=== PATIENT | male | born 1950 | race Caucasian/White ===

== ENCOUNTER 2018-09-18 09:32 | Day surgery (SDC) | payer MEDICARE, OTHER ==
[~2018-09-18] VITALS: Ht 182.9 cm; Wt 118.0 kg
[~2018-09-18 09:32] MED LIST: ANDRODERM1 EAC1 TOP; ASPI81CH PO; ATOR20; CEPH500 PO; ERGO400 PO; HYDCHL12.5 PO; IBUPROFEN200 MG PO; LEVSOD150 PO; LISHYD1012; LOSARTAN-HCTZ1 EAC1 PO; NAPR500 PO; Norvasc10 MG PO; OMEP20ER PO; PERI4 PO; SIMV10 PO; Synthroid175 MCG PO; TESTOSTERONE; TRAM50 PO; Vitamin D2000 UNIT PO
--- NOTE | 2018-09-18 12:23 | NUR ---
09/18/18 1223 Lisa Sullivan OXYGEN 10L VIA POM MASK
== END 2018-09-18 12:02 | disposition home or self-care (01) ==
LOC: ORSCSDS 09:32
PROVIDERS: Student in an Organized Health Care Education/Training Program
PROC: 0DB58ZX Excision of Esophagus, Via Natural or Artificial Opening Endoscopic, Diagnostic (ICD-10-PCS; principal; 2018-09-18 10:45)
DX: K22.70 Barrett's esophagus without dysplasia (principal); K21.9 Gastro-esophageal reflux disease without esophagitis; K44.9 Diaphragmatic hernia without obstruction or gangrene; G47.33 Obstructive sleep apnea (adult) (pediatric); E66.9 Obesity, unspecified; Z87.891 Personal history of nicotine dependence; Z68.35 Body mass index [BMI] 35.0-35.9, adult; Z79.82 Long term (current) use of aspirin; Z79.899 Other long term (current) drug therapy
CPT/HCPCS: 88305; J2704; J7120

== ENCOUNTER 2019-11-05 10:47 | Day surgery (SDC) | payer MEDICARE, OTHER ==
[~2019-11-05] VITALS: Ht 182.9 cm; Wt 118.1 kg
--- NOTE | 2019-11-05 11:25 | NUR ---
11/05/19 1125 WALESKA MCCRAY ONE ATTEMPT BY MACIE IN RW MISSED ONE SUCCESFUL BY MACIE IN UPPER PART OF RW PT TOW
--- NOTE | 2019-11-05 13:01 | NUR ---
11/05/19 1301 Theresa Oliver LATE ENTRY PATIENT REFUSED MULTIPLE OFFERS OF PO FLUIDS
== END 2019-11-05 12:56 | disposition home or self-care (01) ==
LOC: ORSCSDS 10:47
PROVIDERS: Student in an Organized Health Care Education/Training Program
PROC: 0DB58ZX Excision of Esophagus, Via Natural or Artificial Opening Endoscopic, Diagnostic (ICD-10-PCS; principal; 2019-11-05 12:00)
PROC: 0DB68ZX Excision of Stomach, Via Natural or Artificial Opening Endoscopic, Diagnostic (ICD-10-PCS; principal; 2019-11-05 12:00)
DX: K22.70 Barrett's esophagus without dysplasia (principal); K21.9 Gastro-esophageal reflux disease without esophagitis; K44.9 Diaphragmatic hernia without obstruction or gangrene; I10 Essential (primary) hypertension; G47.33 Obstructive sleep apnea (adult) (pediatric); E03.9 Hypothyroidism, unspecified; E78.5 Hyperlipidemia, unspecified; E66.9 Obesity, unspecified; Z68.35 Body mass index [BMI] 35.0-35.9, adult; Z79.899 Other long term (current) drug therapy
CPT/HCPCS: 88305; 88342; J2704; J7120

== ENCOUNTER 2020-04-25 10:19 | Emergency (ER) | payer MEDICARE, OTHER ==
[~2020-04-25] VITALS: Ht 182.9 cm; Wt 122.5 kg
[2020-04-25 11:02] LABS: BASOPHILS ABSOLUTE AUTO 0.08 K/mm3 (0.00-0.23); BASOPHILS PERCENT AUTO 1 % (0-2); EOSINOPHILS ABSOLUTE AUTO 0.06 K/mm3 (0.00-0.68); EOSINOPHILS PERCENT AUTO 1 % (0-6); Hematocrit 48.6 % (37.0-53.0); Hemoglobin 16.7 g/dL (13.5-17.5); IMMATURE GRAN ABSOLUTE AUTO 0.04 K/mm3 (0.00-0.10); IMMATURE GRAN PERCENT AUTO 1 % (0-1); LYMPHOCYTES ABSOLUTE AUTO 1.81 K/mm3 (0.84-5.20); LYMPHOCYTES PERCENT AUTO 26 % (21-46); MONOCYTES ABSOLUTE AUTO 0.58 K/mm3 (0.16-1.47); MONOCYTES PERCENT AUTO 8 % (4-13); Mean Corpuscular HGB 31.7 pg (26.0-34.0); Mean Corpuscular HGB Conc 34.4 g/dL (31.5-36.5); Mean Corpuscular Volume 92 fL (80-100); Mean Platelet Volume 10.1 fL (9.1-12.4); NEUTROPHILS ABSOLUTE AUTO 4.48 K/mm3 (1.96-9.15); NEUTROPHILS PERCENT AUTO 64 % (41-73); Platelet Count 168 K/mm3 (150-400); RDW Coefficient Variation 12.8 % (11.7-14.2); RDW Standard Deviation 43.2 fL (35.1-46.3); Red Blood Cell Count 5.27 M/mm3 (4.30-5.90); White Blood Cell Count 7.05 K/mm3 (4.00-11.30)
[2020-04-25 11:20] LABS: Alanine Aminotransfer (ALT/SGP 71 U/L (12-78); Albumin, Blood 3.9 g/dL (3.4-5.0); Albumin/Globulin Ratio 1.3 (0.8-1.8); Alk Phos 63 U/L (50-136); Anion Gap 8 mmol/L (6-16); Aspartate Aminotrans (AST/SGOT 30 U/L (12-37); Bilirubin, Total 0.8 mg/dL (0.1-1.0); Blood Urea Nitrogen 15 mg/dL (8-24); Bun/Creatinine Ratio 15.6 (12.0-20.0); CO2, Blood 26 mmol/L (21-32); Calcium, Blood 8.7 mg/dL (8.5-10.1); Chloride, Blood 102 mmol/L (98-108); Creatinine, Blood 0.96 mg/dL (0.60-1.20); Globulin, Blood 3.1 g/dL (2.2-4.0); Glomerular Filtration Rate >60 (60-); Glucose, Blood 136 mg/dL (70-99); Potassium, Blood 4.1 mmol/L (3.5-5.5); Sodium, Blood 136 mmol/L (136-145); Troponin I <0.015 ng/mL (0.000-0.040)
[2020-09-08] MEDS ORDERED: AMLO10 PO (08:24)
[2020-09-08] MEDS ORDERED: SYMBICORT 80-10.2 GM INH (08:25)
[2020-09-08] MEDS ORDERED: FLUTICASONE-SA1 EAC8 INH (08:26)
[2020-09-08] MEDS ORDERED: DEPO-TESTO200 MG/1 M IM (08:27)
[2020-09-08] MEDS ORDERED: TRAZ50 PO (08:27)
[2020-09-08] MEDS ORDERED: GABA300 PO (08:27)
== END 2020-04-25 16:36 | disposition home or self-care (01) ==
LOC: ER 10:19
PROVIDERS: Emergency Medicine
DX: R55 Syncope and collapse (principal); Z79.82 Long term (current) use of aspirin; Z79.899 Other long term (current) drug therapy; Z87.891 Personal history of nicotine dependence
CPT/HCPCS: 36415; 70450; 80053; 84484; 85025; 93005; 93010; 99284-25

== ENCOUNTER 2020-09-14 07:56 | Day surgery (SDC) | payer MEDICARE, OTHER ==
[~2020-09-14] VITALS: Ht 182.9 cm; Wt 121.7 kg
[~2020-09-14 07:56] MED LIST changes: +AMLO10 PO; +DEPO-TESTO200 MG/1 M IM; +FLUTICASONE-SA1 EAC8 INH; +GABA300 PO; +SYMBICORT 80-10.2 GM INH; +TRAZ50 PO
--- NOTE | 2020-09-14 08:30 | NUR ---
09/14/20 0830 Rosy Rodriguez CHARTING DONE BY ROLANDO FLOR RN
== END 2020-09-14 13:21 | disposition home or self-care (01) ==
LOC: ORSCSDS 07:56
PROVIDERS: Otolaryngology
PROC: 09DU4ZZ Extraction of Right Ethmoid Sinus, Percutaneous Endoscopic Approach (ICD-10-PCS; principal; 2020-09-14 09:00)
PROC: 8E09XBZ Computer Assisted Procedure of Head and Neck Region (ICD-10-PCS; principal; 2020-09-14 09:00)
PROC: 09DV4ZZ Extraction of Left Ethmoid Sinus, Percutaneous Endoscopic Approach (ICD-10-PCS; principal; 2020-09-14 09:00)
DX: J32.8 Other chronic sinusitis (principal); G47.33 Obstructive sleep apnea (adult) (pediatric); K21.9 Gastro-esophageal reflux disease without esophagitis; Z79.82 Long term (current) use of aspirin; Z79.899 Other long term (current) drug therapy; E78.5 Hyperlipidemia, unspecified; E03.9 Hypothyroidism, unspecified; Z87.891 Personal history of nicotine dependence
CPT/HCPCS: 88305; 88311; A9270; C2625; J0171; J1100; J2250; J2370; J2405; J2704; J2710; J3010; J7120

== ENCOUNTER 2021-02-07 06:49 | Day surgery (SDC) | payer MEDICARE, OTHER ==
[~2021-02-07] VITALS: Ht 182.9 cm; Wt 125.6 kg
[~2021-02-07 06:49] MED LIST changes: +ATOR20 PO; +[UNRECOGNIZED DRUG - OTHER] TOP
--- NOTE | 2021-02-07 07:32 | NUR ---
Ambulatory in Day Surgery Patient states colon prep results clear. History, Chart, Medications and Allergies reviewed before start of procedure. Pre-Op teaching done. Pt verbalizes understanding. Patient States Post-Procedure ride home has been arranged.
--- NOTE | 2021-02-07 08:47 | NUR ---
02/07/21 0847 Alec Cummings History, Chart, Medications and Allergies reviewed before start of procedure.MONITOR INTACT WITH CONTINUOUS PULSE OXIMETRY AND INTERMITTENT BP.3-LEAD EKG REVIEWED WITH PHYSICIAN PRIOR TO START OF PROCEDURE.O2 VIA NRB MASK INTACT THROUGHOUT SEDATION/PROCEDURE. See Anesthesia record.
--- NOTE | 2021-02-07 09:55 | NUR ---
Patient up to Ambulate independently. Gait steady. Discharge instructions reviewed with patient. Patient verbalizes understanding. Copy given to patient to take home. Patient States Post-Procedure ride home has been arranged. Discharged via wheelchair to private car for ride home. ALL BELONINGS RETURNED TO [facility].
== END 2021-02-07 23:37 | disposition home or self-care (01) ==
LOC: ORSCMMR 06:49 → ORD 08:30 → ORSCMMR 08:30
PROVIDERS: Surgery
PROC: 0DBL8ZX Excision of Transverse Colon, Via Natural or Artificial Opening Endoscopic, Diagnostic (ICD-10-PCS; principal; 2021-02-07 08:30)
PROC: 0DBK8ZX Excision of Ascending Colon, Via Natural or Artificial Opening Endoscopic, Diagnostic (ICD-10-PCS; principal; 2021-02-07 08:30)
DX: Z12.11 Encounter for screening for malignant neoplasm of colon (principal); D12.2 Benign neoplasm of ascending colon; D12.3 Benign neoplasm of transverse colon; K57.30 Diverticulosis of large intestine without perforation or abscess without bleeding; Z86.010 Personal history of colon polyps; I10 Essential (primary) hypertension; E03.9 Hypothyroidism, unspecified; E78.5 Hyperlipidemia, unspecified; G47.33 Obstructive sleep apnea (adult) (pediatric); K21.9 Gastro-esophageal reflux disease without esophagitis; E66.01 Morbid (severe) obesity due to excess calories; Z68.37 Body mass index [BMI] 37.0-37.9, adult; Z79.82 Long term (current) use of aspirin; Z79.899 Other long term (current) drug therapy; Z87.891 Personal history of nicotine dependence
CPT/HCPCS: 88305; J2704; J7120

== ENCOUNTER 2021-10-14 05:26 | Emergency (ER) | payer MEDICARE, OTHER ==
[~2021-10-14] VITALS: Ht 182.9 cm; Wt 117.9 kg
[2021-10-14 05:59] LABS: BASOPHILS ABSOLUTE AUTO 0.09 K/mm3 (0.00-0.23); BASOPHILS PERCENT AUTO 1 % (0-2); EOSINOPHILS ABSOLUTE AUTO 0.05 K/mm3 (0.00-0.68); EOSINOPHILS PERCENT AUTO 0 % (0-6); Hematocrit 48.7 % (37.0-53.0); Hemoglobin 16.3 g/dL (13.5-17.5); IMMATURE GRAN ABSOLUTE AUTO 0.08 K/mm3 (0.00-0.10); IMMATURE GRAN PERCENT AUTO 1 % (0-1); LYMPHOCYTES ABSOLUTE AUTO 2.41 K/mm3 (0.84-5.20); LYMPHOCYTES PERCENT AUTO 22 % (21-46); MONOCYTES ABSOLUTE AUTO 0.99 K/mm3 (0.16-1.47); MONOCYTES PERCENT AUTO 9 % (4-13); Mean Corpuscular HGB 30.4 pg (26.0-34.0); Mean Corpuscular HGB Conc 33.5 g/dL (31.5-36.5); Mean Corpuscular Volume 91 fL (80-100); Mean Platelet Volume 10.2 fL (9.1-12.4); NEUTROPHILS ABSOLUTE AUTO 7.52 K/mm3 (1.96-9.15); NEUTROPHILS PERCENT AUTO 68 % (41-73); Platelet Count 195 K/mm3 (150-400); RDW Coefficient Variation 13.7 % (11.7-14.2); RDW Standard Deviation 45.8 fL (35.1-46.3); Red Blood Cell Count 5.37 M/mm3 (4.30-5.90); White Blood Cell Count 11.14 K/mm3 (4.00-11.30)
[2021-10-14 06:05] LABS: Albumin/Globulin Ratio 1.3 (0.8-1.8); Bilirubin, Total 0.6 mg/dL (0.1-1.0); Bun/Creatinine Ratio 21.4 (12.0-20.0); Creatinine, Blood 0.94 mg/dL (0.60-1.20); Globulin, Blood 3.1 g/dL (2.2-4.0); Potassium, Blood 3.7 mmol/L (3.5-5.5); Total Protein, Blood 7.1 g/dL (6.4-8.2)
== END 2021-10-14 09:23 | disposition home or self-care (01) ==
LOC: ER 05:26
PROVIDERS: Student in an Organized Health Care Education/Training Program
DX: R07.9 Chest pain, unspecified (principal); R10.10 Upper abdominal pain, unspecified; R00.2 Palpitations; R06.02 Shortness of breath; I10 Essential (primary) hypertension; Z87.891 Personal history of nicotine dependence
CPT/HCPCS: 36415; 71046; 76705; 80053; 83690; 84484; 85025; 85651; 93005; 93010; A9270; J1170; J2405

== ENCOUNTER → 2022-01-11 | Outpatient (CLI) | payer MEDICARE, OTHER | LOC: LAB SHORT 14:14 → PLD 14:14 | DX: R21 Rash and other nonspecific skin eruption (principal) | CPT/HCPCS: 88312 ==

== ENCOUNTER 2022-07-16 13:16 | Day surgery (SDC) | payer MEDICARE, OTHER ==
[~2022-07-16] VITALS: Ht 182.9 cm; Wt 120.2 kg
[2022-07-16 15:10] VITALS: BP 118/76
== END 2022-07-16 15:01 | disposition home or self-care (01) ==
LOC: ORSCSDS 13:16
PROVIDERS: Student in an Organized Health Care Education/Training Program
PROC: 0DB68ZX Excision of Stomach, Via Natural or Artificial Opening Endoscopic, Diagnostic (ICD-10-PCS; principal; 2022-07-16 14:30)
PROC: 0DB58ZX Excision of Esophagus, Via Natural or Artificial Opening Endoscopic, Diagnostic (ICD-10-PCS; principal; 2022-07-16 14:30)
DX: K22.70 Barrett's esophagus without dysplasia (principal); K21.9 Gastro-esophageal reflux disease without esophagitis; K44.9 Diaphragmatic hernia without obstruction or gangrene; I10 Essential (primary) hypertension; E78.5 Hyperlipidemia, unspecified; G47.30 Sleep apnea, unspecified; K76.0 Fatty (change of) liver, not elsewhere classified; E03.9 Hypothyroidism, unspecified; G47.33 Obstructive sleep apnea (adult) (pediatric); Z86.010 Personal history of colon polyps; F32.A Depression, unspecified; Z79.82 Long term (current) use of aspirin; Z87.891 Personal history of nicotine dependence; Z68.36 Body mass index [BMI] 36.0-36.9, adult; Z79.899 Other long term (current) drug therapy; E66.01 Morbid (severe) obesity due to excess calories
CPT/HCPCS: 88305; 88342; J0330; J0461; J2001; J2405; J2704; J7120; Q9968

== ENCOUNTER → 2022-10-30 | Outpatient (CLI) | payer MEDICARE, OTHER | END | disposition home or self-care (01) | LOC: LAB SHORT 11:40 → LAB 11:40 | DX: M25.571 Pain in right ankle and joints of right foot (principal) | CPT/HCPCS: 84550 ==

== ENCOUNTER 2024-11-21 07:34 | Inpatient (IN) | payer MEDICARE, OTHER ==
[~2024-11-21] VITALS: Ht 182.9 cm; Wt 117.5 kg
[2024-11-21] MEDS ORDERED: TAMSULOSIN HCL0.4 M1 PO (08:45)
[2024-11-21 10:45] LABS: BASOPHILS ABSOLUTE AUTO 0.05 K/mm3 (0.00-0.23); BASOPHILS PERCENT AUTO 1 % (0-2); EOSINOPHILS ABSOLUTE AUTO 0.04 K/mm3 (0.00-0.68); EOSINOPHILS PERCENT AUTO 1 % (0-6); Hematocrit 36.5 % (37.0-53.0); Hemoglobin 12.1 g/dL (13.5-17.5); IMMATURE GRAN ABSOLUTE AUTO 0.02 K/mm3 (0.00-0.10); IMMATURE GRAN PERCENT AUTO 0 % (0-1); LYMPHOCYTES ABSOLUTE AUTO 1.61 K/mm3 (0.84-5.20); LYMPHOCYTES PERCENT AUTO 21 % (21-46); MONOCYTES ABSOLUTE AUTO 0.54 K/mm3 (0.16-1.47); MONOCYTES PERCENT AUTO 7 % (4-13); Mean Corpuscular HGB Conc 33.2 g/dL (31.5-36.5); Mean Corpuscular Volume 91 fL (80-100); NEUTROPHILS ABSOLUTE AUTO 5.38 K/mm3 (1.96-9.15); NEUTROPHILS PERCENT AUTO 70 % (41-73); NRBC ABSOLUTE 0.00 K/mm3 (0.00-0.02); NRBC Auto 0.0 /100 WBC (0.0-0.2); Platelet Count 240 K/mm3 (150-400); RDW Coefficient Variation 12.9 % (11.7-14.2); RDW Standard Deviation 43.1 fL (35.1-46.3)
[2024-11-21 11:00] LABS: Prothrombin Time Results 11.7 Sec (9.7-11.5)
[2024-11-21 11:02] LABS: Alanine Aminotransfer (ALT/SGP 24.0 U/L (12-78); Albumin, Blood 3.9 g/dL (3.4-5.0); Albumin/Globulin Ratio 1.3 (0.8-1.8); Anion Gap 8.0 mmol/L (3-11); Aspartate Aminotrans (AST/SGOT 29.0 U/L (12-37); Bilirubin, Total 0.6 mg/dL (0.1-1.0); Blood Urea Nitrogen 33.0 mg/dL (8-24); CO2, Blood 28.0 mmol/L (21-32); Calcium, Blood 8.7 mg/dL (8.5-10.1); Chloride, Blood 106.0 mmol/L (98-108); Creatinine, Blood 1.2 mg/dL (0.60-1.20); Globulin, Blood 2.9 g/dL (2.2-4.0); Glucose, Blood 115.0 mg/dL (70-99); Magnesium, Blood 2.0 mg/dL (1.6-2.4); Potassium, Blood 3.5 mmol/L (3.5-5.5); Sodium, Blood 138.0 mmol/L (136-145); Total Protein, Blood 6.8 g/dL (6.4-8.2)
[2024-11-21] MEDS ORDERED: Peg/Electrolytes 4,000 ML BTL PO ONE ×2 (14:50→20:20)
[2024-11-21 15:08] LABS: PSA, %Free 29.5 %; PSA, Free 3.130 ng/mL; Prostate Specific Antigen 10.600 ng/mL (0.000-4.000)
[2024-11-21 16:09] LABS: Source, Urine Clean Catch
[2024-11-21 16:16] LABS: Bilirubin, Urine Neg (Neg); Glucose Qualitative, Urine Neg (Neg); Ketones, Urine Neg (Neg); Leukocyte Esterase, Urine Neg (Neg); Protein, Urine 2+ (Neg); Specific Gravity, Urine 1.015 (1.003-1.022); Urobilinogen, Urine NORM (Normal)
[2024-11-21 16:48] LABS: Color, Urine Pale Yellow (P-Yellow)
[2024-11-21 16:50] LABS: White Blood Cells, Urine 0-2 /hpf (0-5)
[2024-11-21 18:22] LABS: Hematocrit 35.6 % (37.0-53.0); Hemoglobin 12.0 g/dL (13.5-17.5)
[2024-11-21 18:43] LABS: Prothrombin Time Results 11.8 Sec (9.7-11.5)
[2024-11-21 19:31] VITALS: BP 145/79
--- NOTE | 2024-11-21 20:18 | NUR ---
THIS HEAD OF RESEARCH & INSIGHTS CALLED TO PHARMACY D/T GOLYTELY ORDER WAS SUPPOSED TO START 1420. ORDER IS "START ONCE PT HAS TRANSFERRED TO THE HOSPITAL ROOM". ORDER HAS TIMED OUT PER PHARMACIST CONVERSTATION. PT ARRIVED TO THE MEDICAL FLOOR RM 310 @1925. NEW ONE TIME ORDER PUT IN BY THIS HEAD OF RESEARCH & INSIGHTS FOR GOLYTELY 4,000 PO OT ONE. THIS ORDER WAS ADDED PER PHARMACY RECOMMENDATION. STARTING THE GOLYTELY SOON ORDER IS ACTIVE FROM THE PHARMACY. CHARGE NURSE SUZI NOTIFIED.
--- NOTE | 2024-11-21 20:21 | NUR ---
PT ARRIVED TO THE MEDICAL FLOOR IN A GURNEY @1925. REPORT WAS RECEIVED FROM ED NURSE IFEANYI. PT TRANSFERRED WITH SBA TO THE HOSPITAL BED. NON-SLIP SOCKS APPLIED. PT REPORTS SOME DIFFICULTY AMBULATING WITH THE ACUTE WILSON CATHETER. PT BROUGHT ALL HIS BELONINGS WITH HIM. EDUCATED ON FALL PRECAUTIONS AND EDUCATED CORRECTION OFFICER SUPERVISOR LIGHT. STARTING GOLYTELY THIS HS DUE TO SCHEDULED COLONOSCOPY AND EGD TOMORROW APPROXIMATELY @1000. PT IS A/O X4, PLEASANT AND ABLE TO MAKE HIS NEEDS KNOWN. BED AT THE LOWEST POSITION, CALL LIGHT W/I REACH.
[2024-11-21] MEDS ORDERED: Lactobacil 2-S.Thermo-Bifido 1 1 Cap PO SCH (21:00)
[2024-11-22] VITALS (23 sets, daily range): BP systolic 95–166; BP diastolic 49–87
[2024-11-22] MEDS ORDERED: FentaNYL Citrate 50 MCG/ML 2 ML Injection IV PRN (01:10)
--- NOTE | 2024-11-22 01:13 | NUR ---
NEW TP-ORDERS RECEIVED FROM THE ON-CALL HOSPITALIST DR. SCHUSTER: MINERAL OIL ENEMA X1, FENTANYL 25-50MCG Q4 PRN IV. ENTERED TO [employer], SEE EMAR.
--- NOTE | 2024-11-22 03:13 | NUR ---
SHIFT SUMMARY GOLYTELY STARTED @2044. FEW HRS LATER PT C/O PAIN WHEN BREARING DOWN AND ATTEMPTING TO HAVE A BM. PT UNABLE TO HAVE A BM. PT IN DISCOMFORT. NEW ORDER FOR FENTANYL AND MINERAL OIL ENEMA RECEIVED FROM THE ON-CALL HOSPITALIST. ENEMA ADMINISTERED ORDERED. PT ABLE TO HOLD FOR>45MINS BEFORE USING BSC. SMALL HARD STOOL NOTED. SMALL AMOUNT OF BLEEDING FROM RECTUM WITH STOOL NOTED. PT RATES PAIN 6/10 WHEN BEARING DOWN AND REPORTS FENTANYL EFFECTIVE. FROM [id number], PT ATTEMPTED BM ON BSC TWICE. PT REPORTS NO URGE TO HAVE A BM. ACUTE WILSON DRAINING TO GRAVITY, REDDISH/TEA COLOR URINE. SBA D/T WEAKNESS AND PT REPORTS BEING VERY TIRED STAYING UP DRINKING GOLYTELY. PT IS A/O X4, PLEASANT AND COOPERATIVE WITH CARE. PT IS ABLE TO MAKE HIS NEEDS KNOWN. CALL LIGHT W/I REACH, BED AT THE LOWEST POSITION.
--- NOTE | 2024-11-22 05:05 | NUR ---
@0500 PT FINISHING GOLSabrTechLY. NO LIQUID BM OF YET, NO LOOSE STOOLS OR HARD STOOLS. THIRD ATTEMPT TO HAVE A BM, PT SITTING ON THE BSC. EARLIER PT HAD A SML HARD STOOL.
[2024-11-22] MEDS ORDERED: Levothyroxine Sodium 0.15 MG Tab PO SCH (06:00)
[2024-11-22 07:07] LABS: BASOPHILS ABSOLUTE AUTO 0.06 K/mm3 (0.00-0.23); BASOPHILS PERCENT AUTO 1 % (0-2); EOSINOPHILS ABSOLUTE AUTO 0.05 K/mm3 (0.00-0.68); EOSINOPHILS PERCENT AUTO 1 % (0-6); Hematocrit 35.3 % (37.0-53.0); Hemoglobin 11.8 g/dL (13.5-17.5); IMMATURE GRAN ABSOLUTE AUTO 0.04 K/mm3 (0.00-0.10); IMMATURE GRAN PERCENT AUTO 0 % (0-1); LYMPHOCYTES ABSOLUTE AUTO 1.35 K/mm3 (0.84-5.20); LYMPHOCYTES PERCENT AUTO 14 % (21-46); MONOCYTES ABSOLUTE AUTO 0.83 K/mm3 (0.16-1.47); MONOCYTES PERCENT AUTO 9 % (4-13); Mean Corpuscular HGB Conc 33.4 g/dL (31.5-36.5); Mean Corpuscular Volume 91 fL (80-100); NEUTROPHILS ABSOLUTE AUTO 7.29 K/mm3 (1.96-9.15); NEUTROPHILS PERCENT AUTO 76 % (41-73); NRBC ABSOLUTE 0.00 K/mm3 (0.00-0.02); NRBC Auto 0.0 /100 WBC (0.0-0.2); Platelet Count 241 K/mm3 (150-400); RDW Coefficient Variation 13.1 % (11.7-14.2); RDW Standard Deviation 43.2 fL (35.1-46.3)
[2024-11-22 07:29] LABS: Alanine Aminotransfer (ALT/SGP 24.0 U/L (12-78); Albumin, Blood 3.7 g/dL (3.4-5.0); Albumin/Globulin Ratio 1.3 (0.8-1.8); Anion Gap 9.0 mmol/L (3-11); Aspartate Aminotrans (AST/SGOT 25.0 U/L (12-37); Bilirubin, Total 0.6 mg/dL (0.1-1.0); Blood Urea Nitrogen 30.0 mg/dL (8-24); CO2, Blood 27.0 mmol/L (21-32); Calcium, Blood 8.7 mg/dL (8.5-10.1); Chloride, Blood 106.0 mmol/L (98-108); Creatinine, Blood 1.14 mg/dL (0.60-1.20); Globulin, Blood 2.9 g/dL (2.2-4.0); Glucose, Blood 136.0 mg/dL (70-99); Magnesium, Blood 2.0 mg/dL (1.6-2.4); Potassium, Blood 3.3 mmol/L (3.5-5.5); Sodium, Blood 139.0 mmol/L (136-145); Total Protein, Blood 6.6 g/dL (6.4-8.2)
--- NOTE | 2024-11-22 08:44 | NUR ---
pt up to bsc, very weak, a/ox4, pleasant and cooperative with care, follows commands well, denies pain at this time, lungs are clear t/o, a bit dim in bases, resp even and unlabored, no cough noted or reported, on r/a, hrr, no edema noted to b/l le, ppp+1, cap reifill<3 sec, vs stable, afebrile, piv to rh and lac, site is clear and patent, btx4 hyperactive, santiago in place draining red urine, skin cw//d, maew, weak, karolyn, call light in reach.
[2024-11-22] MEDS ORDERED: Benzocaine Oral Spray 0.5ML UD ONE (09:49)
--- NOTE | 2024-11-22 09:50 | NUR ---
pt left for day surgery via wheelchair.
--- NOTE | 2024-11-22 10:02 | NUR ---
History, Chart, Medications and Allergies reviewed before start of procedure. Pre-Op teaching done. Pt verbalizes understanding. Patient confirms NPO status and agrees with scheduled surgery. Patient states colon prep results BROWN.
--- NOTE | 2024-11-22 10:07 | NUR ---
11/22/24 Isabella6 Peace Rene CONFIRMED AND REVIEWED H&P, MEDCICATIONS, ALLERGIES, MEDICAL HISTORY, RESPIRATORY HISTORY, VITAL SIGNS, 3-LEAD EKG, CONSENTS, AND PHYSICIAN ORDERS. PATIENT CONFIRMS NPO STATUS AND AGREES WITH SCHEDULED PROCEDURE. MONITOR INTACT WITH CONTINUOUS PULSE OXIMETRY, CAPNOGRAPHY, 3-LEAD EKG, INTERMITTENT BP. SUPPLEMENTAL O2 TO BE TITRATED THROUGHOUT PROCEDURE TO MAINTAIN O2 SATURATION ABOVE 90%. PATIENT DETERMINED TO BE ASA APPROPRIATE FOR PROPOFOL SEDATION PRIOR TO START OF PROCEDURE BY . MALLAMPATI CLASS 2 AIRWAY: COMPLETE VISUALIZATION OF THE UVULA.
[2024-11-22] MEDS ORDERED: Midazolam HCl 1MG / ML 2ML Vial ONE (10:20)
--- NOTE | 2024-11-22 11:06 | NUR ---
Pt returned to room awake, was able to scoot himself over to his bed from [facility], denies pain, states he's doing ok. call light in reach.
--- NOTE | 2024-11-22 17:19 | NUR ---
pt states he feels pressure in his bladder, like it's not drainging, bladder scan was done with results of 53mls. he is also leaking a scant amount around santiago, urine continues to be red, visitor in room, no furhter needs, call light in reach.
--- NOTE | 2024-11-22 19:13 | NUR ---
pt states he still feels the pressure in his bladder, but when he sat up to eat it was really bad, called Dr. Hess with this concern and that we did a bladder scan with result of 58mls, she was ok to irrigate bladder, this was gently done, was able to infuse saline, but not able to pull it back, it did drain out in tube, pt tolerated well, no clots noted, no further changes this shift. call light in reach.
[2024-11-22] MEDS ORDERED: HYDROcodone 10-APAP 325 TAB PO PRN (20:20)
[2024-11-22] MEDS ORDERED: Polyethylene Glycol 3350 17 gm PO SCH (21:00)
[2024-11-23 03:24] VITALS: BP 127/75
--- NOTE | 2024-11-23 03:32 | NUR ---
SHIFT SUMAMRY PT C/O PRESSURE IN THE BLADDER. GENTLY IRRIGATED WILSON LINE, NO CLOTS NOTED, GOOD RETURN OF THE SALINE YELLOW URINE. PT REPORTS FEELING BETTER AFTER. URINE IS PINK/RED IN COLOR, OUTPUT>200MLS/. PT WAS BLADDER SCANNED X2 DURING THIS SHIFT, WHICH SHOWED 0MLS URINE. PRN TYLENOL ADMINISTERED AT HS FOR PRESSURE/PAIN IN THE BLADDER. PT RESTING T/O THIS SHIFT. BED AT THE LOWEST POSITION, CALL LIGHT W/I REACH.
[2024-11-23 07:19] VITALS: BP 135/81
[2024-11-23 10:57] LABS: BASOPHILS ABSOLUTE AUTO 0.09 K/mm3 (0.00-0.23); BASOPHILS PERCENT AUTO 1 % (0-2); EOSINOPHILS ABSOLUTE AUTO 0.06 K/mm3 (0.00-0.68); EOSINOPHILS PERCENT AUTO 1 % (0-6); Hematocrit 32.3 % (37.0-53.0); Hemoglobin 10.9 g/dL (13.5-17.5); IMMATURE GRAN ABSOLUTE AUTO 0.04 K/mm3 (0.00-0.10); IMMATURE GRAN PERCENT AUTO 1 % (0-1); LYMPHOCYTES ABSOLUTE AUTO 1.81 K/mm3 (0.84-5.20); LYMPHOCYTES PERCENT AUTO 21 % (21-46); MONOCYTES ABSOLUTE AUTO 0.54 K/mm3 (0.16-1.47); MONOCYTES PERCENT AUTO 6 % (4-13); Mean Corpuscular HGB Conc 33.7 g/dL (31.5-36.5); Mean Corpuscular Volume 91 fL (80-100); NEUTROPHILS ABSOLUTE AUTO 6.03 K/mm3 (1.96-9.15); NEUTROPHILS PERCENT AUTO 70 % (41-73); NRBC ABSOLUTE 0.00 K/mm3 (0.00-0.02); NRBC Auto 0.0 /100 WBC (0.0-0.2); Platelet Count 236 K/mm3 (150-400); RDW Coefficient Variation 13.0 % (11.7-14.2); RDW Standard Deviation 42.9 fL (35.1-46.3)
[2024-11-23 11:15] LABS: Alanine Aminotransfer (ALT/SGP 20.0 U/L (12-78); Albumin, Blood 3.3 g/dL (3.4-5.0); Albumin/Globulin Ratio 1.2 (0.8-1.8); Anion Gap 10.0 mmol/L (3-11); Aspartate Aminotrans (AST/SGOT 21.0 U/L (12-37); Bilirubin, Total 0.6 mg/dL (0.1-1.0); Blood Urea Nitrogen 25.0 mg/dL (8-24); CO2, Blood 26.0 mmol/L (21-32); Calcium, Blood 8.2 mg/dL (8.5-10.1); Chloride, Blood 105.0 mmol/L (98-108); Creatinine, Blood 1.02 mg/dL (0.60-1.20); Globulin, Blood 2.8 g/dL (2.2-4.0); Glucose, Blood 155.0 mg/dL (70-99); Magnesium, Blood 1.9 mg/dL (1.6-2.4); Potassium, Blood 3.2 mmol/L (3.5-5.5); Sodium, Blood 138.0 mmol/L (136-145); Total Protein, Blood 6.1 g/dL (6.4-8.2)
--- NOTE | 2024-11-23 14:08 | NUR ---
NOTE PT REPORTS PRESSURE AT BADDER/ABD. NIGHT RN REPORTED IRRIGATING WILSON LAST NIGHT. DR. TAY GAVE OK TO IRRIGATE WILSON IF NOT DRAINING AND PT REPORTS PRESSURE AND NEED TO PEE. PT POTASSIUM IS 3.2. DR. TAY REPORTED "WILL ORDER POTASSIUM REPLACEMENT, AND WILL CHANGE ENULOSE PRN TO SCHEDULED, AND UROLOGY SHOULD BE CONSULTED TODAY. THIS RN CALLED IN CONSULT THIS AM. DR. TAY GAVE VERBAL TO REORDER MRI DUE TO CROP CONSULTANT REPORTED "NO ORDER NOTED THIS AM." MRI FORM FILLED OUT AND FAXED PER BREAK RN. PLAN IS MRI WILL OCCUR TOMORROW AND UROLOGY WILL SEE PT TODAY.
[2024-11-23 16:47] VITALS: BP 143/82
--- NOTE | 2024-11-23 19:22 | NUR ---
SHIFT SUMMARY PT A&OX4. PT ADMITTED DUE TO RECTAL BLEED. PT REPORTS SOME PAIN AT RECTUM/PROSTATE. MEDICATED PER EMAR. PT IS SBA W FWW. PT HAS WILSON DUE TO ACUTE RETENTION. WILSON IRREGATED X3. PT REPORTS PRESSURE AT PROSTATE/BLADDER BUT IMPROVED WITH IRREGATION. PT EATS ADEQUATE. UROLOGY SAW PT. ENULOSE NOW SCHEDULED. PT HAD ONE BM DURING SHIFT, WITH GOAL OF [address] TAY. PT HAD POTASSIUM REPLENISHED PO TODAY. PT IN BED, BED IN LOWEST POSITION, CALL LIGHT IN REACH. PLAN FOR BIOPSY AND MRI TOMORROW. PT NPO AT MIDNIGHT.
[2024-11-23 20:26] VITALS: BP 137/84
--- NOTE | 2024-11-24 03:07 | NUR ---
SHIFT SUMMARY URINE IN ACUTE WILSON BAG IS RED/PINK. PRN TYLENOL ADMINISTERED AT HS PER PT REPORT. NO IRRIGATION NEEDED DURING THIS SHIFT. NO CLOTS NOTED. HS TRAZADONE EFFECTIVE, PT RESTING W/O ACUTE DISTRESS. LACTULOSE ADMINISTERED AT HS. NO BM DURING THIS SHIFT. PT REPORTS PASSING GAS. BOWEL TONES HYPOACITVE. NPO AFTER MIDNIGHT FOR SCHEDULED MRI AND BIOPSY TODAY. BED AT THE LOWEST POSITION, CALL LIGHT W/I REACH. PT IS A/O X4, ABLE TO MAKE HIS NEEDS KNOWN AND COOPERATIVE WITH CARE.
[2024-11-24 05:31] LABS: BASOPHILS ABSOLUTE AUTO 0.07 K/mm3 (0.00-0.23); BASOPHILS PERCENT AUTO 1 % (0-2); EOSINOPHILS ABSOLUTE AUTO 0.16 K/mm3 (0.00-0.68); EOSINOPHILS PERCENT AUTO 2 % (0-6); Hematocrit 32.6 % (37.0-53.0); Hemoglobin 10.7 g/dL (13.5-17.5); IMMATURE GRAN ABSOLUTE AUTO 0.04 K/mm3 (0.00-0.10); IMMATURE GRAN PERCENT AUTO 1 % (0-1); LYMPHOCYTES ABSOLUTE AUTO 2.35 K/mm3 (0.84-5.20); LYMPHOCYTES PERCENT AUTO 29 % (21-46); MONOCYTES ABSOLUTE AUTO 0.73 K/mm3 (0.16-1.47); MONOCYTES PERCENT AUTO 9 % (4-13); Mean Corpuscular HGB Conc 32.8 g/dL (31.5-36.5); Mean Corpuscular Volume 93 fL (80-100); NEUTROPHILS ABSOLUTE AUTO 4.74 K/mm3 (1.96-9.15); NEUTROPHILS PERCENT AUTO 59 % (41-73); NRBC ABSOLUTE 0.00 K/mm3 (0.00-0.02); NRBC Auto 0.0 /100 WBC (0.0-0.2); Platelet Count 217 K/mm3 (150-400); RDW Coefficient Variation 13.1 % (11.7-14.2); RDW Standard Deviation 44.4 fL (35.1-46.3)
[2024-11-24 05:57] LABS: Alanine Aminotransfer (ALT/SGP 19.0 U/L (12-78); Albumin, Blood 3.2 g/dL (3.4-5.0); Albumin/Globulin Ratio 1.2 (0.8-1.8); Anion Gap 7.0 mmol/L (3-11); Aspartate Aminotrans (AST/SGOT 19.0 U/L (12-37); Bilirubin, Total 0.5 mg/dL (0.1-1.0); Blood Urea Nitrogen 24.0 mg/dL (8-24); CO2, Blood 29.0 mmol/L (21-32); Calcium, Blood 7.9 mg/dL (8.5-10.1); Chloride, Blood 107.0 mmol/L (98-108); Creatinine, Blood 1.22 mg/dL (0.60-1.20); Globulin, Blood 2.7 g/dL (2.2-4.0); Glucose, Blood 106.0 mg/dL (70-99); Magnesium, Blood 2.0 mg/dL (1.6-2.4); Potassium, Blood 3.7 mmol/L (3.5-5.5); Sodium, Blood 139.0 mmol/L (136-145); Total Protein, Blood 5.9 g/dL (6.4-8.2)
[2024-11-24 07:16] VITALS: BP 129/72
[2024-11-24] MEDS ORDERED: Cholecalciferol 1000 Unit Tablet (=25MCG) PO SCH (09:00)
--- NOTE | 2024-11-24 12:27 | NUR ---
NOTE DAY SURGERY STATED PT NOT ON SURGICAL SCHEDULE, CALLED UROLOGIST LEFT VOICEMAIL. PT NPO, DR. POZO REPORTED HOLD AM MEDS. UROLOGY CAME BY TO SEE PT, STATES "SURGERY/BIOPSY CANCELED TODAY DUE TO AWAITING EQUIPMENT, PT CAN EAT." CALLED DR. POZO TO NOTIFY. DR. POZO REPORTED D/C POTASSIUM DUE TO PT POTASSIUM WITHIN RANGE. CAN GIVE AM MEDS. ORDERED NOW TRAY. PT IN BED, BED IN LOWEST POSITION, CALL LIGHT IN REACH.
--- NOTE | 2024-11-24 12:29 | NUR ---
"Spiritual Care Consult | Ordered by Fiona Hess DO Pt is awake in bed and welcomes my visit. Pt. is pleasant. Spouse is at bedside. facilitate a life review and consider matters of rogerio and belief. Listen with interest, empathy and a calming presence. Pt. displays evidence of trust and engagement. During the visit a measure of rapport is established. Prayed with the Pt. Pt. verbalized gratitude for the spiritual care visit."
[2024-11-24 12:57] VITALS: BP 134/66
[2024-11-24 16:58] VITALS: BP 128/72
--- NOTE | 2024-11-24 19:32 | NUR ---
SHIFT SUMMARY PT A&OX4. PT ADMITTED DUE TO RECTAL BLEED. PT REPORTS SOME PAIN AT RECTUM/PROSTATE. PT DENIED NEED FOR PAIN MEDS. PT IS SBA W FWW. PT HAS WILSON DUE TO ACUTE RETENTION. PT REPORTED IMPROVEMENT WITH PRESSURE AT PROSTATE/BLADDER. THIS RN DID NOT NEED TO IRRIGATE WILSON TODAY. PT EATS ADEQUATE. UROLOGY SAW PT. ENULOSE NOW SCHEDULED. PT DID NOT REPORT BM TODAY. WITH GOAL OF [address] TAY, YESTERDAY. DR. COUGHLIN CAME TO SEE PT TODAY. MRI COMPLETED. UROLOGY SAW PT TODAY. PT IN BED, BED IN LOWEST POSITION, CALL LIGHT IN REACH. PLAN FOR BIOPSY TOMORROW AT 5PM. PT NPO AT MIDNIGHT. VSS.
[2024-11-24 20:40] VITALS: BP 121/61
[2024-11-25] VITALS (11 sets, daily range): BP systolic 128–171; BP diastolic 68–92
--- NOTE | 2024-11-25 04:53 | NUR ---
SHIFT SUMMARY NOC PT A/O X 4. PLEASANT AND COOPERATIVE WITH CARE. VSS. PT PELVIC PAIN BEING MANAGED PER EMAR. WILSON IN PLACE WITH PINK TINTED URINE, IRRIGATED PRN. PT HAS BEEN NPO SINCE MIDNIGHT FOR ULTRASOUND GUIDED PROSTATE BIOPSY TODAY @ 1700. PT CURRENTLY RESTING WITH BED IN LOWEST POSITION, AND CALL LIGHT WITHIN REACH.
[2024-11-25 05:32] LABS: BASOPHILS ABSOLUTE AUTO 0.08 K/mm3 (0.00-0.23); BASOPHILS PERCENT AUTO 1 % (0-2); EOSINOPHILS ABSOLUTE AUTO 0.19 K/mm3 (0.00-0.68); EOSINOPHILS PERCENT AUTO 2 % (0-6); Hematocrit 31.5 % (37.0-53.0); Hemoglobin 10.4 g/dL (13.5-17.5); IMMATURE GRAN ABSOLUTE AUTO 0.06 K/mm3 (0.00-0.10); IMMATURE GRAN PERCENT AUTO 1 % (0-1); LYMPHOCYTES ABSOLUTE AUTO 2.11 K/mm3 (0.84-5.20); LYMPHOCYTES PERCENT AUTO 26 % (21-46); MONOCYTES ABSOLUTE AUTO 0.71 K/mm3 (0.16-1.47); MONOCYTES PERCENT AUTO 9 % (4-13); Mean Corpuscular HGB Conc 33.0 g/dL (31.5-36.5); Mean Corpuscular Volume 93 fL (80-100); NEUTROPHILS ABSOLUTE AUTO 5.00 K/mm3 (1.96-9.15); NEUTROPHILS PERCENT AUTO 61 % (41-73); NRBC ABSOLUTE 0.00 K/mm3 (0.00-0.02); NRBC Auto 0.0 /100 WBC (0.0-0.2); Platelet Count 207 K/mm3 (150-400); RDW Coefficient Variation 12.9 % (11.7-14.2); RDW Standard Deviation 43.9 fL (35.1-46.3)
[2024-11-25 06:01] LABS: Alanine Aminotransfer (ALT/SGP 18.0 U/L (12-78); Albumin, Blood 3.1 g/dL (3.4-5.0); Albumin/Globulin Ratio 1.1 (0.8-1.8); Anion Gap 10.0 mmol/L (3-11); Aspartate Aminotrans (AST/SGOT 17.0 U/L (12-37); Bilirubin, Total 0.5 mg/dL (0.1-1.0); Blood Urea Nitrogen 21.0 mg/dL (8-24); CO2, Blood 27.0 mmol/L (21-32); Calcium, Blood 8.1 mg/dL (8.5-10.1); Chloride, Blood 106.0 mmol/L (98-108); Creatinine, Blood 1.2 mg/dL (0.60-1.20); Globulin, Blood 2.7 g/dL (2.2-4.0); Glucose, Blood 112.0 mg/dL (70-99); Magnesium, Blood 2.1 mg/dL (1.6-2.4); Potassium, Blood 3.6 mmol/L (3.5-5.5); Sodium, Blood 139.0 mmol/L (136-145); Total Protein, Blood 5.8 g/dL (6.4-8.2)
--- NOTE | 2024-11-25 14:33 | NUR ---
Pt. is awake in bed when he welcomes my visit. Pt. i s pleasant. Pt. verbalized that he is waiting results from some biospys to identify a plan of care. Pt. displayed evidence of a calm demanor, while also displaying a genuine sense of concern for his health future. Listen with emapthy and a calming presence. Prayed with the Pt. Pt. verbalzied gratitude for the spiritual care visit and welcomed this paediatric thoracic physician to return.
[2024-11-25] MEDS ORDERED: FentaNYL Citrate 50 MCG/ML 2 ML Injection ONE (16:47)
[2024-11-25] MEDS ORDERED: CefTRIAXone Sodium 2,000 MG in NS 100 ML IV SCH (17:10)
[2024-11-25] MEDS ORDERED: CefTRIAXone 2000 MG Vial ONE (17:14)
[2024-11-25] MEDS ORDERED: Metoclopramide HCl 5MG / ML 2ML Vial IV PRN (17:30)
[2024-11-25] MEDS ORDERED: FentaNYL Citrate 50 MCG/ML 2 ML Injection IV PRN ×2 (17:30→17:35)
[2024-11-25] MEDS ORDERED: Albuterol 2.5 MG/3 ML VIAL INH PRN (17:30)
[2024-11-25] MEDS ORDERED: ePHEDrine Sulfate 50 MG/ML 1ML Injection ONE (17:30)
[2024-11-25] MEDS ORDERED: HYDROmorphone HCl/Pf 1MG SYR IV PRN ×2 (17:35)
[2024-11-25] MEDS ORDERED: Labetalol HCL 5 MG/ML 4ML Injection (Single Dose) IV PRN (17:35)
--- NOTE | 2024-11-25 18:00 | NUR ---
PT TAKEN TO SURGERY AT 1650 VIA MARY JANE
--- NOTE | 2024-11-25 19:58 | NUR ---
SUMMARY- PT A/O X4, NPO ALL DAY FOR PROSTATE BX PERFORMED BY DR SALAS [id number], RETURNED S/P PROCEDURE, VSS, FEELING HUNGRY. STARTED ON CLEARS, FEELS READY FOR SANDWICH. REPORTED OFF TO RHEA YOUNG RN TO FOLLOW THROUGH. WILL SET UP SCD'S WELL. PT HAS WILSON DRAINING TOYA WITH BLOOD TINGE INTERMITTANTLY. PROCEDURE TOO BX THROUGH RECTUM SO WILL THAI FOR DISCHARGE. PT GIVEN LACATLOSE AND MIRILAX THIS AM TO STIM BM, PT STATES A NUMBER OF DAYS SINCE HIS LAST BM. DECLINED PAIN MED ALL DAY STATING TOLERABLE PRESURE SENSATION AROUNT RECTUM AND PROSTATE AREA. AND FRIENDS IN OUT ALL DAY TO VISIT, HAS GOOD SUPPORT. PT UNAWARE OF THE DAUNTING REPORT OF THE MRI INFORMATION NOT FULLY DISCLOSED TO PT AT THIS TIME. REPORTED OFF TO RHEA YOUNG RN
[2024-11-26 05:06] VITALS: BP 137/83
--- NOTE | 2024-11-26 05:42 | NUR ---
SHIFT SUMMARY: Pt is admitted for rectal bleed and is a full code. Is alert and able to make needs known. ADLs have been SBA. denies pain or discomfort when asked. Stringer in place and draining clear light crimson urine. Started shift on 2LPM via NC to maintain spo2 greater than 90%. Did a trial with no O2 support near the end of shift. After 5 min SPO2 did not drop below 90% while laying in bed. Left O2 off for rest of the shift.
[2024-11-26 05:48] LABS: BASOPHILS ABSOLUTE AUTO 0.03 K/mm3 (0.00-0.23); BASOPHILS PERCENT AUTO 0 % (0-2); EOSINOPHILS ABSOLUTE AUTO 0.00 K/mm3 (0.00-0.68); EOSINOPHILS PERCENT AUTO 0 % (0-6); Hematocrit 32.2 % (37.0-53.0); Hemoglobin 10.8 g/dL (13.5-17.5); IMMATURE GRAN ABSOLUTE AUTO 0.04 K/mm3 (0.00-0.10); IMMATURE GRAN PERCENT AUTO 1 % (0-1); LYMPHOCYTES ABSOLUTE AUTO 1.03 K/mm3 (0.84-5.20); LYMPHOCYTES PERCENT AUTO 13 % (21-46); MONOCYTES ABSOLUTE AUTO 0.43 K/mm3 (0.16-1.47); MONOCYTES PERCENT AUTO 6 % (4-13); Mean Corpuscular HGB Conc 33.5 g/dL (31.5-36.5); Mean Corpuscular Volume 89 fL (80-100); NEUTROPHILS ABSOLUTE AUTO 6.32 K/mm3 (1.96-9.15); NEUTROPHILS PERCENT AUTO 81 % (41-73); NRBC ABSOLUTE 0.00 K/mm3 (0.00-0.02); NRBC Auto 0.0 /100 WBC (0.0-0.2); Platelet Count 207 K/mm3 (150-400); RDW Coefficient Variation 12.4 % (11.7-14.2); RDW Standard Deviation 40.8 fL (35.1-46.3)
[2024-11-26 07:05] LABS: Alanine Aminotransfer (ALT/SGP 20.0 U/L (12-78); Albumin, Blood 3.1 g/dL (3.4-5.0); Albumin/Globulin Ratio 1.0 (0.8-1.8); Anion Gap 11.0 mmol/L (3-11); Aspartate Aminotrans (AST/SGOT 20.0 U/L (12-37); Bilirubin, Total 0.5 mg/dL (0.1-1.0); Blood Urea Nitrogen 23.0 mg/dL (8-24); CO2, Blood 25.0 mmol/L (21-32); Calcium, Blood 8.3 mg/dL (8.5-10.1); Chloride, Blood 106.0 mmol/L (98-108); Creatinine, Blood 1.11 mg/dL (0.60-1.20); Globulin, Blood 3.2 g/dL (2.2-4.0); Glucose, Blood 137.0 mg/dL (70-99); Magnesium, Blood 2.3 mg/dL (1.6-2.4); Potassium, Blood 4.2 mmol/L (3.5-5.5); Sodium, Blood 138.0 mmol/L (136-145); Total Protein, Blood 6.3 g/dL (6.4-8.2)
[2024-11-26 07:34] VITALS: BP 142/78
--- NOTE | 2024-11-26 12:59 | NUR ---
Pt. is awake and welcomes my visit. Pt. is pleasant and rapport is quickly re-established. Pt. verbalizes that he is awaiting results from biopsys that took place the previous evening. Pt. displays evidence of anticipating that the results will inform a care plan. Pt. also verbalizes concerns about being discharged without a clear plan. Listen with empathy and normalize the Pt. experience. Pt. shared lengthy details about his family in [place]. Prayed with Pt. Pt. verbalzied gratitude for the spiritual care visit.
[2024-11-26 16:29] VITALS: BP 133/73
--- NOTE | 2024-11-26 18:07 | NUR ---
SHIFT SUMMARY PATIENT A/OX4, ABLE T0 MAKE NEEDS KNOWN. PLEASANT AND COOPERATIVE WITH CARE. STAND BY ASSIST IN ROOM, PATIENT WEANED FROM OXYGEN LAST NIGHT AND HAS BEEN TOLERATING ROOM AIR WELL. HAS HAD MULTIPLE WALKS THROUGH THE HALLWAY WITH NURSING STAFF. WILSON CATHETER IN PLACE DRAINING RED TINGED, TOYA URINE. NO VISIBLE CLOTS THIS SHIFT. PATIENT INCONTINENT OF BOWEL THIS MORNING. DENIED NEED FOR PAIN MEDICATION THIS SHIFT. FAMILY AND FRIENDS CAME TO BEDSIDE THROUGHOUT THE SHIFT TO VISIT. NO OTHER CONCERNS AT THIS TIME, WILL CONTINUE TO MONITOR.
[2024-11-26 19:09] VITALS: BP 128/72
[2024-11-27 04:52] VITALS: BP 117/70
[2024-11-27 04:53] LABS: BASOPHILS ABSOLUTE AUTO 0.07 K/mm3 (0.00-0.23); BASOPHILS PERCENT AUTO 1 % (0-2); EOSINOPHILS ABSOLUTE AUTO 0.17 K/mm3 (0.00-0.68); EOSINOPHILS PERCENT AUTO 2 % (0-6); Hematocrit 28.6 % (37.0-53.0); Hemoglobin 9.7 g/dL (13.5-17.5); IMMATURE GRAN ABSOLUTE AUTO 0.03 K/mm3 (0.00-0.10); IMMATURE GRAN PERCENT AUTO 0 % (0-1); LYMPHOCYTES ABSOLUTE AUTO 1.89 K/mm3 (0.84-5.20); LYMPHOCYTES PERCENT AUTO 23 % (21-46); MONOCYTES ABSOLUTE AUTO 0.78 K/mm3 (0.16-1.47); MONOCYTES PERCENT AUTO 9 % (4-13); Mean Corpuscular HGB Conc 33.9 g/dL (31.5-36.5); Mean Corpuscular Volume 90 fL (80-100); NEUTROPHILS ABSOLUTE AUTO 5.40 K/mm3 (1.96-9.15); NEUTROPHILS PERCENT AUTO 65 % (41-73); NRBC ABSOLUTE 0.00 K/mm3 (0.00-0.02); NRBC Auto 0.0 /100 WBC (0.0-0.2); Platelet Count 185 K/mm3 (150-400); RDW Coefficient Variation 12.6 % (11.7-14.2); RDW Standard Deviation 42.0 fL (35.1-46.3)
[2024-11-27 05:26] LABS: Alanine Aminotransfer (ALT/SGP 19.0 U/L (12-78); Albumin, Blood 3.0 g/dL (3.4-5.0); Albumin/Globulin Ratio 1.2 (0.8-1.8); Anion Gap 9.0 mmol/L (3-11); Aspartate Aminotrans (AST/SGOT 20.0 U/L (12-37); Bilirubin, Total 0.3 mg/dL (0.1-1.0); Blood Urea Nitrogen 24.0 mg/dL (8-24); CO2, Blood 25.0 mmol/L (21-32); Calcium, Blood 8.2 mg/dL (8.5-10.1); Chloride, Blood 108.0 mmol/L (98-108); Creatinine, Blood 1.18 mg/dL (0.60-1.20); Globulin, Blood 2.4 g/dL (2.2-4.0); Glucose, Blood 118.0 mg/dL (70-99); Magnesium, Blood 2.1 mg/dL (1.6-2.4); Potassium, Blood 4.2 mmol/L (3.5-5.5); Sodium, Blood 138.0 mmol/L (136-145); Total Protein, Blood 5.4 g/dL (6.4-8.2)
[2024-11-27 07:38] VITALS: BP 151/87
[2024-11-27 15:15] VITALS: BP 142/76
--- NOTE | 2024-11-27 16:17 | NUR ---
Pt. is awake in bed when he welcomed my visit. Spouse is at bedside. Rapport is quickly re-established as I have seen this Pt. frequently. Pt. displayed evidence of being frustrated while waiting for the pathology results. Seek to normalize the Pt. experience and listen with empathy and a calming presence. 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 [address] Pt. Pt. and spouse both verbalize gratitude fo rthe spiritual care visit.
--- NOTE | 2024-11-27 17:47 | NUR ---
SHIFT SUMMARY PATIENT A/OX4, ABLE TO MAKE NEEDS KNOWN. PLEASANT AND COOPERATIVE WITH CARE. PATHOLOGY REPORT RESULTED THIS AFTERNOON AROUND 1500. DR. GARCIA NOTIFIED VIA TELEPHONE AND STATED WILL INFORM PATIENT IN THE MORNING. DR. MARTINEZ ALSO NOTIFIED VIA PHONE AND CAME TO BEDSIDE TO DISCUSS RESULTS WITH THE PATIENT WITH HIS SPOUSE OVER THE PHONE. PATIENT STATES WOULD LIKE TO BE REFERRED TO ONCOLOGY SOON POSSIBLE. WILSON CATH IN PLACE, HEMATURIA RESOLVING AND URINE MORE YELLOW IN APPEARANCE THROUGHOUT THE SHIFT. PATIENT DENIES NEED FOR PAIN MEDICATION THIS SHIFT. THIS AFTERNOON STATES FEELS "PRESSURE" AND FULLNESS IN HIS BLADDER, WILSON CATH FLUSHED WITH DR. MARTINEZ AT BEDSIDE. PATIENT WAS ABLE TO SHOWER TODAY. CONTINUES WITH HEALTHY APPETITE. NO OTHER CONCERNS AT THIS TIME, WILL CONTINUE TO MONITOR. PLAN FOR POSSIBLE DISCHARGE TOMORROW PER DR. GARCIA.
[2024-11-27 19:46] VITALS: BP 155/79
[2024-11-28 04:25] VITALS: BP 133/82
--- NOTE | 2024-11-28 04:28 | NUR ---
NO ACUTE CHANGES DURING SHIFT. PATIENT ALERT AND ORIENTED X4, ABLE TO MAKE NEEDS KNOWN. PATIENT HAS WILSON IN PLACE, DRAINING TO GRAVITY. URINE IS YELLOW. PATIENT IS A SBA TO THE BATHROOM/ NO COMPLAINTS OF PATIENT. PATIENT IS SATING >92% ON ROOM AIR. PATIENT IS ABLE TO CHANGE POSITIONS WITHOUT HELP. BED IS IN LOW POSITION WITH WHEELS LOCKED. CALL LIGHT WITHIN REACH.
[2024-11-28 05:55] LABS: BASOPHILS ABSOLUTE AUTO 0.08 K/mm3 (0.00-0.23); BASOPHILS PERCENT AUTO 1 % (0-2); EOSINOPHILS ABSOLUTE AUTO 0.16 K/mm3 (0.00-0.68); EOSINOPHILS PERCENT AUTO 2 % (0-6); Hematocrit 30.5 % (37.0-53.0); Hemoglobin 10.1 g/dL (13.5-17.5); IMMATURE GRAN ABSOLUTE AUTO 0.04 K/mm3 (0.00-0.10); IMMATURE GRAN PERCENT AUTO 1 % (0-1); LYMPHOCYTES ABSOLUTE AUTO 1.81 K/mm3 (0.84-5.20); LYMPHOCYTES PERCENT AUTO 21 % (21-46); MONOCYTES ABSOLUTE AUTO 0.86 K/mm3 (0.16-1.47); MONOCYTES PERCENT AUTO 10 % (4-13); Mean Corpuscular HGB Conc 33.1 g/dL (31.5-36.5); Mean Corpuscular Volume 92 fL (80-100); NEUTROPHILS ABSOLUTE AUTO 5.74 K/mm3 (1.96-9.15); NEUTROPHILS PERCENT AUTO 66 % (41-73); NRBC ABSOLUTE 0.00 K/mm3 (0.00-0.02); NRBC Auto 0.0 /100 WBC (0.0-0.2); Platelet Count 197 K/mm3 (150-400); RDW Coefficient Variation 12.9 % (11.7-14.2); RDW Standard Deviation 43.0 fL (35.1-46.3)
[2024-11-28 06:18] LABS: Alanine Aminotransfer (ALT/SGP 21.0 U/L (12-78); Albumin, Blood 3.0 g/dL (3.4-5.0); Albumin/Globulin Ratio 1.1 (0.8-1.8); Anion Gap 10.0 mmol/L (3-11); Aspartate Aminotrans (AST/SGOT 22.0 U/L (12-37); Bilirubin, Total 0.4 mg/dL (0.1-1.0); Blood Urea Nitrogen 22.0 mg/dL (8-24); CO2, Blood 25.0 mmol/L (21-32); Calcium, Blood 8.4 mg/dL (8.5-10.1); Chloride, Blood 108.0 mmol/L (98-108); Creatinine, Blood 1.13 mg/dL (0.60-1.20); Globulin, Blood 2.8 g/dL (2.2-4.0); Glucose, Blood 129.0 mg/dL (70-99); Magnesium, Blood 2.1 mg/dL (1.6-2.4); Potassium, Blood 4.0 mmol/L (3.5-5.5); Sodium, Blood 139.0 mmol/L (136-145); Total Protein, Blood 5.8 g/dL (6.4-8.2)
[2024-11-28 07:27] VITALS: BP 134/84
[2024-11-28 15:33] VITALS: BP 133/79
--- NOTE | 2024-11-28 16:14 | NUR ---
NOTE RT CAME TO DO O2 EVAL REPORTED PT ON RA AT REST. WITH AMBULATION PT REQUIRES 3L OF O2. AIR CARGO AGENT AND DR. GARCIA NOTIFIED.
--- NOTE | 2024-11-28 19:39 | NUR ---
SHIFT SUMMARY PT A&OX4. PT ADMITTED DUE TO RECTAL BLEED. PT REPORTS SOME PAIN AT RECTUM/PROSTATE. PT DENIED NEED FOR PAIN MEDS. PT IS SBA W FWW. PT HAS WILSON DUE TO ACUTE RETENTION. WILSON DRAINING ADEQUATE W NO DEPENDENT LOOPS. PT REPORTED IMPROVEMENT W PRESSURE AT PROSTATE/BLADDER. THIS RN LEVI NOT NEED TO IRRIGATE WILSON. PT EATS ADEQUATE. UROLOGY SAW PT, REPORTED PT WILL FOLLOW ONCOLOGY OUTPATIENT. ENULOSE SCHEDULED. PT REPORTED ONE BM THIS SHIFT. O2 EVAL COMPLETED BY RESPIRATORY TODAY. PT RA W OUT AMBULATION. PT ON 3L W AMBULATION. PT VSS. PT IN BED, BED IN LOWEST POSITION, CALL LIGHT IN REACH.
[2024-11-28 20:58] VITALS: BP 118/62
[2024-11-29 04:32] VITALS: BP 124/65
--- NOTE | 2024-11-29 05:01 | NUR ---
SHIFT SUMMARY PATIENT ALERT AND ORIENTED X4. PATIENT DENIES PAIN. PATIENT MAKE NEEDS KNOWN. PLEASANT AND COOPERATIVE WITH CARE. NO ACUTE CHANGE DURING THIS SHIFT. VITAL SIGN STABLE. PATIENT IS SELF REPOSITIONING/SBA. WILSON CATHETER IN PLACE. PATIENT HAD BM WITH BRIGHT RED BLOOD TWICE DURING THIS SHIFT.PATIENT USES 3L OXYGEN FOR AMBULATION. BED LOCKED AND IS IN LOW POSITION. CALL LIGHT WITHIN REACH.
[2024-11-29 05:12] LABS: BASOPHILS ABSOLUTE AUTO 0.07 K/mm3 (0.00-0.23); BASOPHILS PERCENT AUTO 1 % (0-2); EOSINOPHILS ABSOLUTE AUTO 0.12 K/mm3 (0.00-0.68); EOSINOPHILS PERCENT AUTO 2 % (0-6); Hematocrit 30.8 % (37.0-53.0); Hemoglobin 10.3 g/dL (13.5-17.5); IMMATURE GRAN ABSOLUTE AUTO 0.04 K/mm3 (0.00-0.10); IMMATURE GRAN PERCENT AUTO 1 % (0-1); LYMPHOCYTES ABSOLUTE AUTO 1.82 K/mm3 (0.84-5.20); LYMPHOCYTES PERCENT AUTO 23 % (21-46); MONOCYTES ABSOLUTE AUTO 0.73 K/mm3 (0.16-1.47); MONOCYTES PERCENT AUTO 9 % (4-13); Mean Corpuscular HGB Conc 33.4 g/dL (31.5-36.5); Mean Corpuscular Volume 93 fL (80-100); NEUTROPHILS ABSOLUTE AUTO 5.31 K/mm3 (1.96-9.15); NEUTROPHILS PERCENT AUTO 66 % (41-73); NRBC ABSOLUTE 0.00 K/mm3 (0.00-0.02); NRBC Auto 0.0 /100 WBC (0.0-0.2); Platelet Count 189 K/mm3 (150-400); RDW Coefficient Variation 12.8 % (11.7-14.2); RDW Standard Deviation 43.2 fL (35.1-46.3)
[2024-11-29 05:49] LABS: Alanine Aminotransfer (ALT/SGP 20.0 U/L (12-78); Albumin, Blood 3.0 g/dL (3.4-5.0); Albumin/Globulin Ratio 1.2 (0.8-1.8); Anion Gap 9.0 mmol/L (3-11); Aspartate Aminotrans (AST/SGOT 20.0 U/L (12-37); Bilirubin, Total 0.5 mg/dL (0.1-1.0); Blood Urea Nitrogen 18.0 mg/dL (8-24); CO2, Blood 26.0 mmol/L (21-32); Calcium, Blood 8.2 mg/dL (8.5-10.1); Chloride, Blood 107.0 mmol/L (98-108); Creatinine, Blood 1.17 mg/dL (0.60-1.20); Globulin, Blood 2.6 g/dL (2.2-4.0); Glucose, Blood 115.0 mg/dL (70-99); Magnesium, Blood 2.1 mg/dL (1.6-2.4); Potassium, Blood 4.3 mmol/L (3.5-5.5); Sodium, Blood 138.0 mmol/L (136-145); Total Protein, Blood 5.6 g/dL (6.4-8.2)
[2024-11-29 07:35] VITALS: BP 136/59
[2024-11-29] MEDS ORDERED: HYDACE10B PO (09:34)
[2024-11-29] MEDS ORDERED: LACT10SY PO (09:34)
[2024-11-29] MEDS ORDERED: MAGNESIUM OXID500 MG PO (09:35)
[2024-11-29] MEDS ORDERED: LOSA50 PO (09:35)
[2024-11-29] MEDS ORDERED: OXYB5 PO (09:35)
[2024-11-29] MEDS ORDERED: MIRALAX17 GM PO (09:36)
--- NOTE | 2024-11-29 16:51 | NUR ---
DISCHARGE NOTE PT A&OX4. PT ADMITTED DUE TO RECTAL BLEEDING. PT REPORTS NO CHEST PAIN OR GENERALIZED PAIN. GLEN DILIVERED O2. PT ON RA AT REST AND 3L OF O2 WITH AMBULATION. ORDERED DISCHARGE. MEDS FAXED TO PREFER PHARMACY. HARD SCRIPT WENT W PT. COPY IN CHART. THIS RN EDUCATED PT ON WILSON CARE AT HOME. THIS RN WENT OVER DISCHARGE INSTRUCTIONS. PT SAID "WILL FOLLOW UP WITH ONCOLOGY AND PCP AND MANAGE WILSON AND O2 REQUIREMENTS AT HOME." IV D/C. PT ESCORTED TO PATIENT ENTERANCE VIA WHEELCHAIR BY BREAK RN.
== END 2024-11-29 15:35 | disposition home or self-care (01) | DRG 723 ==
LOC: ER 07:34 → MEDS 07:35 → ENPENDDIS 11-29 13:56 → MEDS 11-29 15:35
PROVIDERS: Student in an Organized Health Care Education/Training Program; Surgery; Urology; ADMIT Family Medicine
PROC: 0T9B70Z Drainage of Bladder with Drainage Device, Via Natural or Artificial Opening (ICD-10-PCS; 2024-11-21)
PROC: 0DB78ZX Excision of Stomach, Pylorus, Via Natural or Artificial Opening Endoscopic, Diagnostic (ICD-10-PCS; 2024-11-22)
PROC: 0DB68ZX Excision of Stomach, Via Natural or Artificial Opening Endoscopic, Diagnostic (ICD-10-PCS; 2024-11-22)
PROC: 0W3P8ZZ Control Bleeding in Gastrointestinal Tract, Via Natural or Artificial Opening Endoscopic (ICD-10-PCS; 2024-11-22)
PROC: 0DBP8ZX Excision of Rectum, Via Natural or Artificial Opening Endoscopic, Diagnostic (ICD-10-PCS; 2024-11-22)
PROC: 0DB58ZX Excision of Esophagus, Via Natural or Artificial Opening Endoscopic, Diagnostic (ICD-10-PCS; 2024-11-22 10:00)
PROC: 0VB07ZX Excision of Prostate, Via Natural or Artificial Opening, Diagnostic (ICD-10-PCS; principal; 2024-11-25 17:30)
DX: C61 Malignant neoplasm of prostate (principal); K62.5 Hemorrhage of anus and rectum; N13.30 Unspecified hydronephrosis; M54.50 Low back pain, unspecified; G89.29 Other chronic pain; Z99.81 Dependence on supplemental oxygen; Z68.35 Body mass index [BMI] 35.0-35.9, adult; K21.9 Gastro-esophageal reflux disease without esophagitis; E03.9 Hypothyroidism, unspecified; E78.5 Hyperlipidemia, unspecified; E66.9 Obesity, unspecified; G47.33 Obstructive sleep apnea (adult) (pediatric); I10 Essential (primary) hypertension; K22.70 Barrett's esophagus without dysplasia; K29.50 Unspecified chronic gastritis without bleeding; N40.1 Benign prostatic hyperplasia with lower urinary tract symptoms; R33.8 Other retention of urine; H26.9 Unspecified cataract; Z98.890 Other specified postprocedural states; Z87.891 Personal history of nicotine dependence; Z88.8 Allergy status to other drugs, medicaments and biological substances; Z79.82 Long term (current) use of aspirin; Z79.899 Other long term (current) drug therapy; Z79.890 Hormone replacement therapy
CPT/HCPCS: 36415; 51702; 51798; 72197; 74177; 80053; 81001; 82272; 82947; 83735; 83880; 84153; 84154; 84484; 85014; 85018; 85025; 85610; 85730; 86850; 86900; 86901; 88305; 93005; 93010; 94760; 94761; 99285-25; A9270; A9579; J0696; J2250; J2704; J3010; J7120; Q9967

== ENCOUNTER 2024-12-05 12:07 | Emergency (ER) | payer MEDICARE, OTHER ==
[~2024-12-05] VITALS: Ht 182.9 cm; Wt 117.9 kg
[~2024-12-05 12:07] MED LIST changes: +HYDACE10B PO; +LACT10SY PO; +LOSA50 PO; +MAGNESIUM OXID500 MG PO; +MIRALAX17 GM PO; +OXYB5 PO; +TAMSULOSIN HCL0.4 M1 PO
[2024-12-05 12:45] LABS: BASOPHILS ABSOLUTE AUTO 0.08 K/mm3 (0.00-0.23); BASOPHILS PERCENT AUTO 1 % (0-2); EOSINOPHILS ABSOLUTE AUTO 0.10 K/mm3 (0.00-0.68); EOSINOPHILS PERCENT AUTO 1 % (0-6); Hematocrit 33.8 % (37.0-53.0); Hemoglobin 11.3 g/dL (13.5-17.5); IMMATURE GRAN ABSOLUTE AUTO 0.05 K/mm3 (0.00-0.10); IMMATURE GRAN PERCENT AUTO 1 % (0-1); LYMPHOCYTES ABSOLUTE AUTO 1.81 K/mm3 (0.84-5.20); LYMPHOCYTES PERCENT AUTO 19 % (21-46); MONOCYTES ABSOLUTE AUTO 0.71 K/mm3 (0.16-1.47); MONOCYTES PERCENT AUTO 7 % (4-13); Mean Corpuscular HGB Conc 33.4 g/dL (31.5-36.5); Mean Corpuscular Volume 89 fL (80-100); NEUTROPHILS ABSOLUTE AUTO 7.04 K/mm3 (1.96-9.15); NEUTROPHILS PERCENT AUTO 72 % (41-73); NRBC ABSOLUTE 0.00 K/mm3 (0.00-0.02); NRBC Auto 0.0 /100 WBC (0.0-0.2); Platelet Count 258 K/mm3 (150-400); RDW Coefficient Variation 12.6 % (11.7-14.2); RDW Standard Deviation 41.1 fL (35.1-46.3)
[2024-12-05 12:57] LABS: Alanine Aminotransfer (ALT/SGP 24.0 U/L (12-78); Albumin, Blood 3.4 g/dL (3.4-5.0); Albumin/Globulin Ratio 1.1 (0.8-1.8); Anion Gap 9.0 mmol/L (3-11); Aspartate Aminotrans (AST/SGOT 31.0 U/L (12-37); Bilirubin, Total 0.9 mg/dL (0.1-1.0); Blood Urea Nitrogen 15.0 mg/dL (8-24); CO2, Blood 23.0 mmol/L (21-32); Calcium, Blood 8.4 mg/dL (8.5-10.1); Chloride, Blood 109.0 mmol/L (98-108); Creatinine, Blood 1.07 mg/dL (0.60-1.20); Globulin, Blood 3.0 g/dL (2.2-4.0); Glucose, Blood 114.0 mg/dL (70-99); Potassium, Blood 3.8 mmol/L (3.5-5.5); Sodium, Blood 137.0 mmol/L (136-145); Total Protein, Blood 6.4 g/dL (6.4-8.2)
[2024-12-05 13:55] LABS: Prothrombin Time Results 11.8 Sec (9.7-11.5)
[2024-12-05 15:16] VITALS: BP 148/86
[2024-12-05] MEDS ORDERED: Peg/Electrolytes 4,000 ML BTL PO ONE (16:20)
[2024-12-05] MEDS ORDERED: LACT10SY PO (16:24)
[2024-12-05] MEDS ORDERED: COLACE100 MG PO (16:24)
[2024-12-05] MEDS ORDERED: ONDA4ODT MM (16:40)
== END 2024-12-05 17:40 | disposition home or self-care (01) ==
LOC: ER 12:07
PROVIDERS: Emergency Medicine; Student in an Organized Health Care Education/Training Program
DX: C61 Malignant neoplasm of prostate (principal); K56.609 Unspecified intestinal obstruction, unspecified as to partial versus complete obstruction; K92.1 Melena; K59.00 Constipation, unspecified; I10 Essential (primary) hypertension; E78.5 Hyperlipidemia, unspecified; Z87.891 Personal history of nicotine dependence
CPT/HCPCS: 74177; 80053; 82272; 85025; 85610; 85730; 86850; 86900; 86901; 93005; 93010; 99284-25; A9270; Q9967

== ENCOUNTER 2024-12-18 10:47 | Emergency (ER) | payer MEDICARE, OTHER ==
[~2024-12-18] VITALS: Ht 182.9 cm; Wt 113.4 kg
[~2024-12-18 10:47] MED LIST changes: +COLACE100 MG PO; +ONDA4ODT MM
[2024-12-18 11:31] LABS: Hematocrit 35.1 % (37.0-53.0); Hemoglobin 11.5 g/dL (13.5-17.5); Mean Corpuscular HGB Conc 32.8 g/dL (31.5-36.5); Mean Corpuscular Volume 93 fL (80-100); NRBC ABSOLUTE 0.00 K/mm3 (0.00-0.02); NRBC Auto 0.0 /100 WBC (0.0-0.2); Platelet Count 294 K/mm3 (150-400); RDW Coefficient Variation 13.6 % (11.7-14.2); RDW Standard Deviation 46.7 fL (35.1-46.3)
[2024-12-18 11:55] LABS: BAND PERCENT MAN 8 % (0-8); BASOPHILS ABSOLUTE MAN 0.00 K/mm3 (0.00-0.23); BASOPHILS PERCENT MAN 0 % (0-2); EOSINOPHILS ABSOLUTE MAN 0.00 K/mm3 (0.00-0.68); EOSINOPHILS PERCENT MAN 0 % (0-6); LYMPHOCYTES ABSOLUTE MAN 2.50 K/mm3 (0.84-5.20); LYMPHOCYTES PERCENT MAN 9 % (21-46); METAMYELOCYTE ABSOLUTE MAN 1.66 K/mm3 (0.00-0.00); METAMYELOCYTE PERCENT MAN 6 % (0-0); MONOCYTES ABSOLUTE MAN 1.11 K/mm3 (0.16-1.47); MONOCYTES PERCENT MAN 4 % (4-13); MYELOCYTE ABSOLUTE MAN 1.11 K/mm3 (0.00-0.00); MYELOCYTE PERCENT MAN 4 % (0-0); NEUTROPHILS ABSOLUTE MAN 21.40 K/mm3 (1.96-9.15); SEG NEUTROPHILS PERCENT MAN 69 % (41-73)
[2024-12-18 12:04] LABS: Alanine Aminotransfer (ALT/SGP 21.0 U/L (12-78); Albumin, Blood 3.4 g/dL (3.4-5.0); Albumin/Globulin Ratio 1.0 (0.8-1.8); Anion Gap 9.0 mmol/L (3-11); Aspartate Aminotrans (AST/SGOT 21.0 U/L (12-37); Bilirubin, Total 0.5 mg/dL (0.1-1.0); Blood Urea Nitrogen 15.0 mg/dL (8-24); CO2, Blood 24.0 mmol/L (21-32); Calcium, Blood 8.2 mg/dL (8.5-10.1); Chloride, Blood 106.0 mmol/L (98-108); Creatinine, Blood 1.4 mg/dL (0.60-1.20); Globulin, Blood 3.3 g/dL (2.2-4.0); Glucose, Blood 151.0 mg/dL (70-99); Potassium, Blood 4.3 mmol/L (3.5-5.5); Sodium, Blood 135.0 mmol/L (136-145); Total Protein, Blood 6.7 g/dL (6.4-8.2)
[2024-12-18 13:25] LABS: Source, Urine Clean Catch
[2024-12-18 13:38] LABS: Bilirubin, Urine Neg (Neg); Color, Urine Yellow (P-Yellow); Glucose Qualitative, Urine Neg (Neg); Ketones, Urine Neg (Neg); Leukocyte Esterase, Urine 2+ (Neg); Protein, Urine 3+ (Neg); Specific Gravity, Urine 1.005 (1.003-1.022); Urobilinogen, Urine NORM (Normal)
[2024-12-18 14:20] LABS: Red Blood Cells, Urine TNTC /hpf (0-2)
[2024-12-18 14:41] VITALS: BP 140/79
[2024-12-18] MEDS ORDERED: Ondansetron HCl 2 MG / ML 2ML Vial IV PRN (16:05)
[2024-12-18] MEDS ORDERED: Lidocaine 2% Jelly Uro-Jet TOP ONE (16:20)
== END 2024-12-18 19:11 | disposition home or self-care (01) ==
LOC: ER 10:47
PROVIDERS: Student in an Organized Health Care Education/Training Program
DX: N30.91 Cystitis, unspecified with hematuria (principal); Z87.891 Personal history of nicotine dependence; E78.5 Hyperlipidemia, unspecified; E03.9 Hypothyroidism, unspecified; I10 Essential (primary) hypertension; Z79.899 Other long term (current) drug therapy; Z88.8 Allergy status to other drugs, medicaments and biological substances
CPT/HCPCS: 36415; 51798; 80053; 81001; 83605; 85025; 87086; 99283-25